=== PATIENT | male | born 1955 | race Asian ===

== ENCOUNTER 2017-09-15 14:37 | Emergency (ER) | payer MEDICARE ==
[~2017-09-15] VITALS: Ht 170.2 cm; Wt 83.9 kg
[~2017-09-15 14:37] MED LIST: ALLO100T PO; ASPI-1265 PO; ATOR20TA66 PO; CARV-50 PO; GLIM1TAB46 PO; LISI-600 PO; METF-436 PO; SYN0.088T PO
[2017-09-15 14:40] VITALS: BP 119/73
[2017-09-15] MEDS ORDERED: normal saline 1000ML IV soln IV ONE (14:55)
[2017-09-15] MEDS ORDERED: pantoprazole IV 80 MG in normal saline 100ml IV soln 100 ML IV ONE (14:55)
[2017-09-15] MEDS ORDERED: pantoprazole 40 MG vial IV ONE (15:00)
[2017-09-15 15:06] LABS: CLARITY,URINE CLEAR (Clear); COLOR,URINE STRAW (Yellow); GLUCOSE, URINE NEGATIVE (Neg); KETONES,URINE NEGATIVE (Neg); LEUKOCYTE ESTERASE ,URINE NEGATIVE (Neg); NITRITES, URINE NEGATIVE (Neg); OCCULT BLOOD,URINE NEGATIVE (Neg); PH,URINE 5.5 (4.8-8.0); PROTEIN,URINE NEGATIVE (Neg); UROBILINOGEN,URINE 0.2 E.U/dL (0.2-1.0)
[2017-09-15 15:06] LABS: BASOPHILS # (AUTO) 0.1 X10'3 (0-0.2); BASOPHILS % (AUTO) 1.2 % (0-1); EOSINOPHILS # (AUTO) 0.3 X10'3 (0-0.9); EOSINOPHILS % (AUTO) 2.8 % (0-6); HEMATOCRIT 33.6 % (42.0-52.0); HEMOGLOBIN 11.5 g/dl (14.0-17.9); LYMPHOCYTES # (AUTO) 2.2 X10'3 (1.1-4.8); LYMPHOCYTES % (AUTO) 20.9 % (21-51); MEAN CORPUSCULAR HEMOGLOBIN 32.3 PG (27.0-31.0); MEAN CORPUSCULAR HGB CONC 34.4 % (33.0-36.5); MEAN CORPUSCULAR VOLUME 93.9 FL (78-98); MEAN PLATELET VOLUME 6.7 FL (7.4-10.4); MONOCYTES # (AUTO) 0.6 X10'3 (0-0.9); MONOCYTES % (AUTO) 5.7 % (2-12); NEUTROPHILS # (AUTO) 7.3 X10'3 (1.8-7.7); NEUTROPHILS % (AUTO) 69.4 % (42-75); PLATELET COUNT 307 X10'3 (140-440); RED BLOOD COUNT 3.58 X10'6 (4.70-6.10); RED CELL DISTRIBUTION WIDTH 14.8 % (11.5-14.5); WHITE BLOOD COUNT 10.6 X10'3 (4.5-11.0)
[2017-09-15 15:08] LABS: UA COLLECTION TYPE VOIDED
[2017-09-15 15:14] LABS: INR 1.1 INR; PROTHROMBIN TIME 11.7 SECONDS (9.0-12.0)
[2017-09-15 15:20] LABS: ALANINE AMINOTRANSFERASE 28 U/L (12-78); ALBUMIN 3.2 G/DL (3.4-5.0); ALBUMIN/GLOBULIN RATIO 0.9 (1.1-1.5); ALKALINE PHOSPHATASE 93 IU/L (46-116); ANION GAP 8 (8-16); ASPARTATE AMINO TRANSFERASE 20 U/L (10-37); BILIRUBIN,TOTAL 0.8 MG/DL (0.1-1.0); BLOOD UREA NITROGEN 24 MG/DL (7-18); BUN/CREATININE RATIO 16.1 (5.4-32.0); CALCIUM 8.4 MG/DL (8.5-10.1); CHLORIDE 104 MMOL/L (99-107); CREATININE 1.49 MG/DL (0.60-1.10); POTASSIUM 4.3 MMOL/L (3.5-5.1); SODIUM 137 MMOL/L (135-145); TOTAL CARBON DIOXIDE 25.2 MMOL/L (24-32); TOTAL PROTEIN 6.8 G/DL (6.4-8.2); eGFR 48 ML/MIN
[2017-09-15 15:21] LABS: GLUCOSE 207 MG/DL (70-104)
[2017-09-15 15:52] LABS: OCCULT BLOOD STOOL POSITIVE (Neg)
[2017-09-18] MEDS ORDERED: GLIM4TAB79 PO (13:53)
[2017-09-18] MEDS ORDERED: ALLO300T2 PO (13:53)
[2017-09-18] MEDS ORDERED: LEVO50TA8 PO (13:53)
[2017-09-18] MEDS ORDERED: CARV25TA2 PO (13:53)
[2017-09-18] MEDS ORDERED: ATOR40TA PO (13:57)
[2017-09-18] MEDS ORDERED: LISI-600 PO (13:57)
[2017-09-18] MEDS ORDERED: RIVA20TA PO (13:57)
[2017-09-18] MEDS ORDERED: OMEG1CAP20 PO (14:00)
[2017-09-18] MEDS ORDERED: INSU100I31 SQ (14:00)
[2017-09-18] MEDS ORDERED: UBID100C16 PO (14:03)
[2017-09-18] MEDS ORDERED: MULT-269 PO (14:03)
[2017-09-18] MEDS ORDERED: CYAN100T (14:03)
[2017-09-18] MEDS ORDERED: LACTC PO (14:03)
== END 2017-09-15 16:05 | disposition home or self-care (01) ==
LOC: ER 14:38
DX: D64.9 Anemia, unspecified (principal); I13.0 Hypertensive heart and chronic kidney disease with heart failure and stage 1 through stage 4 chronic kidney disease, or unspecified chronic kidney disease; E11.22 Type 2 diabetes mellitus with diabetic chronic kidney disease; N18.9 Chronic kidney disease, unspecified; I50.9 Heart failure, unspecified; N17.9 Acute kidney failure, unspecified; I48.91 Unspecified atrial fibrillation; Z79.82 Long term (current) use of aspirin; Z86.73 Personal history of transient ischemic attack (TIA), and cerebral infarction without residual deficits; Z95.0 Presence of cardiac pacemaker
CPT/HCPCS: 36415; 71045; 80053; 81003; 82272; 85025; 85610; 86885; 86900; 86901; 93005; 96374; 99285; C9113; J7030